=== PATIENT | male | born 1965 | race Caucasian/White ===

== ENCOUNTER 2024-05-14 12:19 | Emergency (ER) | payer MEDICAID ==
[~2024-05-14] VITALS: Ht 170.2 cm; Wt 76.0 kg
[2024-05-14 12:35] VITALS: O2SAT 97
[2024-05-14] MEDS ORDERED: IBUPROFEN 600MG TABLET PO ONE (13:30)
[2024-05-14 14:08] LABS: BASOPHILS % 0.8 % (0.0-2.0); EOSINOPHILS % 7.4 % (0.0-5.0); HEMATOCRIT. 46.2 % (42.0-52.0); LYMPHOCYTES % 22.1 % (20.0-50.0); MEAN CORPUSCULAR HEMOGLOBIN 31.2 pg (28.0-32.0); MEAN CORPUSCULAR HGB CONC 34.7 g/dL (31.0-37.0); MEAN PLATELET VOLUME 7.8 fl (7.4-10.4); MONOCYTES % 4.8 % (2.0-8.0); NEUTROPHILS % 64.9 % (40.0-76.0); PLATELET 229 x1000/uL (130-400); RED BLOOD CELL COUNT 5.13 mill/uL (4.7-6.1); RED CELL DISTRIBUTION WIDTH 13.6 % (11.6-14.6); WHITE BLOOD COUNT 8.3 x1000/uL (4.5-11.0)
[2024-05-14 14:16] LABS: CARBON DIOXIDE 27 mEq/L (21-32); CHLORIDE 108 mEq/L (98-107); POTASSIUM 3.9 mEq/L (3.5-5.1); SODIUM 140 mEq/L (136-145)
[2024-05-14 14:17] LABS: CALCIUM 9.4 mg/dL (8.7-10.4)
[2024-05-14 14:20] LABS: CLARITY URINE CLEAR (CLEAR); COLOR URINE YELLOW (YELLOW); GLUCOSE URINE NEGATIVE (NEGATIVE); KETONES URINE NEGATIVE (NEGATIVE); LEUKOCYTE ESTERASE URINE NEGATIVE (NEGATIVE); NITRITE URINE NEGATIVE (NEGATIVE); OCCULT BLOOD URINE NEGATIVE (NEGATIVE); PH URINE 6.5 (4.5-8.0); PROTEIN URINE NEGATIVE (NEGATIVE); SPECIFIC GRAVITY URINE 1.005 (1.005-1.030); UROBILINOGEN URINE 0.2 E.U./dL (0.2-1.0)
[2024-05-14 14:22] LABS: CREATININE 0.9 mg/dL (0.6-1.3); GLUCOSE 106 mg/dL (70-105); UREA NITROGEN BLOOD 9 mg/dL (9-23)
[2024-05-14 14:23] LABS: ALANINE AMINOTRANSFERASE 15 IU/L (10-49)
[2024-05-14 14:24] LABS: ALBUMIN 4.5 g/dL (3.2-4.8); ASPARTATE AMINOTRANSFERASE 15 IU/L (<34); BILIRUBIN DIRECT 0.1 mg/dL (<=3.0); BILIRUBIN TOTAL 0.5 mg/dL (0.1-1.0); PROTEIN TOTAL 7.9 g/dL (6.0-8.3)
[2024-05-14] MEDS: IBUPROFEN 600MG TABLET PO NR (16:30)
[2024-05-14] MEDS ORDERED: KETO10TA2 MT (16:41)
[2024-05-14 17:30] VITALS: BP 127/69; PULSE 78; RESP 18; TEMP 36.66960; O2SAT 97
== END 2024-05-14 17:30 | disposition home or self-care (01) ==
LOC: ER 12:19
DX: R10.9 Unspecified abdominal pain (principal); M54.6 Pain in thoracic spine
CPT/HCPCS: 36415; 74176; 80048; 80076; 81003; 85025; 99284